=== PATIENT | female | born 1955 | race Caucasian/White ===

== ENCOUNTER 2021-08-02 09:43 | Outpatient (CLI) | payer OTHER, MEDICARE ==
--- NOTE | 2021-08-02 11:08 | XRAY Report ---
PROCEDURE: Lumbar Spine 2 View INDICATIONS: LUMBAGO WITH SCIATICA TECHNIQUE: 3 views of the lumbar spine were acquired. COMPARISON: None. FINDINGS: Bones: 5 [id number] vertebrae are present. Grade 1 anterolisthesis at L4-5, measuring up to 6.5 mm. No vertebral body compression fractures. No suspicious bony lesions. Facet arthrosis, most pr ominent at L4-S1. Soft tissues: Overlying bowel gas pattern is normal. No suspicious soft tissue calcifications. IMPRESSION: Lumbar spine degeneration as detailed above. Reviewed by: Wilfredo Hoffman MD on 08/02/2021 11:07 AM PDT Approved by: Wilfredo Hoffman MD on 08/02/2021 11:07 AM PDT Station ID: [id number]
--- NOTE | 2021-08-02 14:30 | XRAY Report ---
PROCEDURE: Cervical Spine 2 View INDICATIONS: CERVICALGIA TECHNIQUE: 3 view(s) of the cervical spine were acquired. COMPARISON: None. FINDINGS: Bones: No fractures or dislocations to the superior endplate of T1 level. Moderate degenerative nicolle nge in the cervical spine. 0.3 cm anterolisthesis of C2 on C3. The lateral masses of C1 appear intact on the odontoid view. No suspicious bony lesions. Soft tissues: No prevertebral soft tissue swelling. IMPRESSION: Moderate degenerative change in the cervical spine. Reviewed by: Spenser Malin MD on 08/02/2021 2:28 PM PDT Approved by: Spenser Malin MD on 08/02/2021 2:28 PM PDT Station ID: [id number]
== END 2021-08-02 09:44 | disposition home or self-care (01) ==
LOC: DI.N 09:43
PROVIDERS: ATTEND Nurse Practitioner Family
DX: M47.812 Spondylosis without myelopathy or radiculopathy, cervical region (principal); M47.816 Spondylosis without myelopathy or radiculopathy, lumbar region; M43.06 Spondylolysis, lumbar region

== ENCOUNTER 2021-08-31 10:37 | Outpatient (CLI) | payer MEDICARE, OTHER ==
--- NOTE | 2021-08-31 16:23 | DEXA Report ---
PROCEDURE: Dexa Spine and/or Hip INDICATIONS: POST MENOPAUSAL TECHNIQUE: Dual energy x-ray absorptiometry (DXA) was performed on a Beautified System. Regions measur ed are the AP Spine, femoral neck, and if needed forearm. COMPARISON: None. FINDINGS: Lumbar Spine: Bone Mineral Density 1.4 g/cm/cm,T score 1.7, normal bone density Left Hip: Bone Mineral Density 1.2 g/cm/cm,T score 1.2, normal bone density Impression: Normal bone density. Patients with diagnosis of osteoporosis or osteopenia should have regular bone mineral density assess ment. For those eligible for Medicare, routine testing is allowed once every 2 years. Testing frequ ency can be increased for patients who have rapidly progressing disease or for those who are receivin g medical therapy to restore bone mass. Reviewed by: Misael Burns MD on 08/31/2021 4:22 PM PDT Approved by: Misael Burns MD on 08/31/2021 4:22 PM PDT Station ID: [id number]
== END 2021-08-31 10:38 | disposition home or self-care (01) ==
LOC: DI 10:37
PROVIDERS: ATTEND Physician Assistant
DX: Z78.0 Asymptomatic menopausal state (principal)

== ENCOUNTER 2021-11-15 14:12 | Outpatient (CLI) | payer MEDICARE, OTHER ==
--- NOTE | 2021-11-15 15:35 | XRAY Report ---
PROCEDURE: Ankle 3 View LT INDICATIONS: LT ANKLE PAIN TECHNIQUE: 3 views of the ankle were acquired. COMPARISON: None. FINDINGS: Bones: No acute fractures or dislocations. Ankle mortise is normally aligned. No suspicious bony l esions. Small plantar calcaneal enthesophyte. Soft tissues: No suspicious soft tissue calcification. IMPRESSION: No acute osseous abnormality. If symptoms persist or there is continued clinical concern , further evaluation with MRI or CT may be helpful. Reviewed by: Bobby Fabian MD on 11/15/2021 3:34 PM PDT Approved by: Bobby Fabian MD on 11/15/2021 3:34 PM PDT Station ID: [id number]
== END 2021-11-15 14:13 | disposition home or self-care (01) ==
LOC: DI 14:12
PROVIDERS: ATTEND Podiatrist
DX: M25.572 Pain in left ankle and joints of left foot (principal)

== ENCOUNTER 2022-02-08 13:28 | Outpatient (CLI) | payer MEDICARE, OTHER ==
--- NOTE | 2022-02-08 16:40 | MRI Report ---
PROCEDURE: MRI cervical spine without contrast INDICATIONS: CERVICALGIA TECHNIQUE: Noncontrast sagittal T1 spin echo and T2 fast spin echo, sagittal STIR, foraminal oblique sagittal T2 fast spin echo, and axial gradient echo or T2 fast spin echo through the cervical spine. COMPARISON: None. FINDINGS: Image quality: Excellent. Alignment and Curvature: There is normal bony alignment. Bone Marrow: Degenerative endplate changes noted, chronic. Spinal Cord: Visualized spinal cord has normal size and signal. No cerebellar tonsillar herniation. Paraspinous Soft Tissues: No paravertebral masses. Prevertebral soft tissues are normal in thicknes s. C2-C3: Normal in appearance. C3-C4: Disc height is maintained. Hypertrophic left uncovertebral joint results in moderate left fo raminal stenosis. No central or right foraminal stenosis. C4-C5: Disc height is maintained. Hypertrophic uncovertebral joints present without central or left foraminal stenosis. Moderate right foraminal stenosis present. C5-C6: Disc height is maintained. Posterior disc osteophyte complex results in mild central stenosis . No foraminal stenosis. C6-C7: Mild disc height loss and degenerative endplate changes are present. Small posterior disc ost eophyte complex with mild central stenosis. Mild bilateral foraminal stenosis C7-T1: Normal in appearance. IMPRESSION: Multilevel degenerative disc disease and arthropathy results in varying degrees of central and forami nal stenosis including moderate foraminal stenosis at C3-4 and C4-5 Reviewed by: Antoni Grace MD on 02/08/2022 3:39 PM [facility] Approved by: Antoni Grace MD on 02/08/2022 3:39 PM [facility] Station ID: [id number]
== END 2022-02-08 13:29 | disposition home or self-care (01) ==
LOC: DI 13:28
PROVIDERS: ATTEND Nurse Practitioner Family
DX: M50.30 Other cervical disc degeneration, unspecified cervical region (principal); M47.812 Spondylosis without myelopathy or radiculopathy, cervical region; M48.02 Spinal stenosis, cervical region

== ENCOUNTER 2022-02-08 13:29 | Outpatient (CLI) | payer MEDICARE, OTHER ==
--- NOTE | 2022-02-10 10:37 | Mammography Report ---
BILATERAL DIGITAL SCREENING MAMMOGRAM 3D/2D: 02/08/2022 CLINICAL: Routine screening. Comparison is made to exams dated: 04/11/2017 mammogram, 05/07/2018 mammogram, 02/22/2016 mammogram, 02/20/2015 mammogram, and 05/23/2013 mammogram - [facility]. Both breasts are almost entirely fatty (category a/<25% glandular tissue). No significant masses, calcifications, or other findings are seen in either breast. There has been no significant interval change. IMPRESSION: NEGATIVE There is no mammographic evidence of malignancy. A 1 year screening mammogram is recommended. Based on the Tyrer Cuzick model (a risk assessment model) the patients lifetime risk is 5.2% and her 10 year risk is 2.6%. According to the ACR, ACS, and NCCN guidelines, an annual breast MRI exam rosanna g with mammogram is recommended if the patients lifetime risk is 20% or greater. This exam was interpreted at Station ID: [id number]. NOTE: For mammograms, a report in lay terms will be sent to the patient. Approximately 15% of breast malignancies will not be visualized mammographically. In the management of a palpable breast mass, a negative mammogram must not discourage biopsy of a clinically suspicious lesion. Electronically Signed By: Jeovanny stone/[place]:02/09/2022 17:24:38 ACR BI-RADS Category 1: Negative 3341F PARENCHYMAL PATTERN: (F) - The breast(s) demonstrate(s) diffuse fatty replacement. BI-RADS CATEGORY: (1) - 1 RECOMMENDATION: (ANNUAL) - Recommend routine annual screening mammography. [id number] 1 year screening LATERALITY: (B)
== END 2022-02-08 13:30 | disposition home or self-care (01) ==
LOC: DI 13:29
PROVIDERS: ATTEND Nurse Practitioner Family
DX: Z12.31 Encounter for screening mammogram for malignant neoplasm of breast (principal)

== ENCOUNTER 2022-04-19 10:19 | Outpatient (CLI) | payer MEDICARE, OTHER ==
--- NOTE | 2022-04-19 13:16 | MRI Report ---
PROCEDURE: ANKLE WO - LT INDICATIONS: LEFT ANKLE PAIN TECHNIQUE: Noncontrast Magnetic Resonance Imaging (MRI) of the ankle/hindfoot was performed utilizing the follow ing sequences: sagittal T1 spin echo, sagittal STIR, axial PD fast spin echo, axial T2 fast spin echo with fat saturation, coronal T2 spin echo with fat saturation, and coronal T1 spin echo. COMPARISON: Left ankle radiographs 11/15/2021 FINDINGS: Image quality: Excellent. Bones and joints: No acute trabecular bone injury or fracture. No hindfoot coalition. The ankle mortise is maintained. No osteochondral defect is seen at the talar dome. Degenerative changes are seen at the posterior landa btalar facet with subchondral cystic changes. Mild degenerative spurring at the dorsal talonavicular joint. Medial structures: Increased signal intensity is seen within the deep fibers of the deltoid ligament, consistent with a remote prior low-grade sprain. The distal spring ligament components are intact. The posterior tibial is, flexor digitorum longus, and flexor hallucis longus tendons are intact. The posterior tibial neur ovascular bundle appears normal within the tarsal tunnel, without extrinsic mass effect. Lateral structures: The anterior and posterior distal tibiofibular ligaments are intact. There is chronic complete tearin g of the anterior talofibular ligament. Calcaneofibular ligament and posterior talofibular ligament a re grossly intact. The peroneus longus and peroneus brevis tendons are intact. The sinus tarsi demons trates normal fatty signal. Anterior structures: The tibialis anterior, extensor hallucis longus, and extensor digitorum longus tendons appear intact. Posterior and plantar structures: Mild Achilles tendinosis. Mild thickening of the proximal plantar fascia without surrounding edema. N o disproportionate atrophy of the abductor digiti minimi muscle. IMPRESSION: 1.Chronic complete tearing of the anterior talofibular ligament. 2.Remote prior low-grade sprain of the deltoid ligament. 3.Mild Achilles tendinosis. 4.Mild chronic proximal plantar fasciitis. 5.Mild degenerative changes at the posterior subtalar facet and the dorsal talonavicular joint. Reviewed by: Bobby Fabian MD on 04/19/2022 1:15 PM [facility] Approved by: Bobby Fabian MD on 04/19/2022 1:15 PM [facility] Station ID: [id number]
== END 2022-04-19 10:20 | disposition home or self-care (01) ==
LOC: DI 10:19
PROVIDERS: ATTEND Podiatrist
DX: S93.492A Sprain of other ligament of left ankle, initial encounter (principal); M67.874 Other specified disorders of tendon, left ankle and foot; M72.2 Plantar fascial fibromatosis; M19.072 Primary osteoarthritis, left ankle and foot